=== PATIENT | male | born 1985 | race Two or more races ===

== ENCOUNTER 2025-10-14 19:23 | Emergency (ER) | payer MEDICAID, OTHER ==
[~2025-10-14] VITALS: Ht 188 cm; Wt 160.7 kg
--- NOTE | 2025-10-14 21:26 | ED.PDOC ---
History of Present Illness HPI Comments 39 y/o M, presents to the ED for CC of earache. Patient states, he has been experiencing right ear pain that has caused him to be disorientated and unsteady while ambulating. Patient denies headache, nausea, vomiting, or dizziness. No other symptoms or modifying factors are present at this time. Chief Complaint: Earache Time Seen by MD: 21:00 Reviewed Notes: Nurses Notes, Medications, Allergies Allergies: Coded Allergies: NO KNOWN ALLERGIES (Unverified , 10/14/25) Information Source: Patient Mode of Arrival: Ambulatory Severity: Moderate Timing: Days Duration: Since onset Prehospital treatment: None Past Medical History PAST MEDICAL HISTORY: Denies Surgical History: Denies all surgeries Family History Family History: Unknown Social History Smoker: Non-Smoker Alcohol: Denies ETOH Use Drugs: Denies Drug Use Lives In: Home Constitutional: denies: chills, diaphoresis, fatigue, fever, malaise, sweats, weakness, others EENTM: reports: ear pain; denies: blurred vision, double vision, ear bleeding, ear discharge, ear drainage, ear ringing, eye pain, eye redness, hearing loss, mouth pain, mouth swelling, nasal discharge, nose bleeding, nose congestion, nose pain, photophobia, tearing, throat pain, throat swelling, voice changes, others Respiratory: denies: cough, hemoptysis, orthopnea, SOB at rest, shortness of breath, SOB with excertion, stridor, wheezing, others Cardiovascular: denies: chest pain, dizzy spells, diaphoresis, Dyspnea on exertion, edema, irregular heart beat, left arm pain, lightheadedness, palpitations, PND, syncope, others Gastrointestinal: denies: abdomen distended, abdominal pain, blood streaked bowels, constipated, diarrhea, dysphagia, difficulty swallowing, hematemesis, melena, nausea, poor appetite, poor fluid intake, rectal bleeding, rectal pain, vomiting, others Genitourinary: denies: burning, dysuria, flank pain, frequency, hematuria, incontinence, penile discharge, penile sore, pain, testicle pain, testicle swelling, urgency, others Neurological: denies: dizziness, fainting, headache, left sided numbness, left sided weakness, numbness, paresthesia, pre-existing deficit, right sided numbness, right sided weakness, seizure, speech problems, tingling, tremors, weakness, others Musculoskeletal: denies: back pain, gout, joint pain, joint swelling, muscle pain, muscle stiffness, neck pain, others Integumetry: denies: bruises, change in color, change in hair/nails, dryness, laceration, lesions, lumps, rash, wounds, others Allergic/Immunocompromised: denies: Difficulty Healing, Frequent Infections, Hives, Itching, others Hematologic/Lymphatic: denies: anemia, blood clots, easy bleeding, easy bruising, swollen glands, others Endocrine: denies: excessive hunger, excessive sweating, excessive thirst, excessive urination, flushing, intolerance to cold, intolerance to heat, unexplained weight gain, unexplained weight loss, others Psychiatric: denies: anxiety, bipolar disorder, depression, hopeless, panic disorder, schizophrenia, sleepless, suicidal, others All Other Systems: Reviewed and Negative Physical Exam General Appearance: No Apparent Distress, Normal HEENT: Normal ENT Inspection, Pharynx Normal, TM Abnormal (L), TM Abnormal (R) (bilateral cerumen ) Neck: Full Range of Motion, Non-Tender, Normal, Normal Inspection Respiratory: Chest Non-Tender, Lungs Clear, No Accessory Muscle Use, No Respiratory Distress, Normal Breath Sounds Cardiovascular: No Edema, No Murmur, No Gallop, Normal Peripheral Pulses, Regular Rate/Rhythm Breast Exam: Deferred Gastrointestinal: No Organomegaly, Non Tender, No Pulsatile Mass, Normal Bowel Sounds, Soft Genitalia: Deferred Pelvic: Deferred Rectal: Deferred Extremities: No calf tenderness, Normal capillary refill, Normal inspection, Normal range of motion, Non-tender, No pedal edema Musculoskeletal : Apperance: Normal Neurologic: Alert, manager wound II-XII nml as Tested, No Motor Deficits, Normal Affect, Normal Mood, No Sensory Deficits Cerebellar Function: Normal Reflexes: Normal Skin: Dry, Normal Color, Warm Lymphatic: No Adenopathy Was a procedure done? Was a procedure done?: No Differential Dx Considerations may include: otitis media, tinnitus X-Ray, Labs, Meds, VS Vital Signs Date Time Temp Pulse Resp B/P (MAP) Pulse Ox O2 Delivery O2 Flow Rate FiO2 10/14/25 21:57 104 16 95 Room Air 10/14/25 21:57 98.0 104 16 134/101 (112) 95 98.0 10/14/25 19:30 98.5 104 18 165/109 93 98.5 X-Ray, Labs, Meds, VS Comment Copious muscles intermittent was removed from the right canal using a curette. Canal was cleared showing erythemic/bulging tympanic membrane Time of 1ST Reevaluation: 21:30 Reevaluation 1ST: Unchanged Patient Education/Counseling: Diagnosis, Treatment, Need For Follow Up (Follow up if he has been next available appointment. Return emergency room if symptoms worsen.) Family Education/Counseling: No Family Present SEPSIS Sepsis Screen Date sepsis recognized/suspect: Oct 14, 2025 Time Sepsis recognized/suspect: 1932 Recent Procedure: No On Antibiotic Therapy: No Respiratory Rate >20: No Heart Rate >90: Yes Temp<36 C (96.8 F) or >38.3 C: No SBP <90 or MAP <65 mmHG: No New Acute Mental Status Change: No Is the patient on CPAP, BIPAP,: No Vital Signs Date Time Temp Pulse Resp B/P (MAP) Pulse Ox O2 Delivery O2 Flow Rate FiO2 10/14/25 21:57 104 16 95 Room Air 10/14/25 21:57 98.0 104 16 134/101 (112) 95 98.0 10/14/25 19:30 98.5 104 18 165/109 93 98.5 Departure 1 Departure Time of Disposition: 23:17 Impression: Primary Impression: Cerumen impaction Qualified Codes: H61.21 - Impacted cerumen, right ear Additional Impression: Otitis media Qualified Codes: H66.001 - Acute suppurative otitis media without spontaneous rupture of ear drum, right ear Disposition: HOME / SELF CARE / HOMELESS Condition: Stable e-Prescriptions [id number] (Otic) (Cortisporin Otic Soln) [address] 3 DROP OT TID for 6 Days, #10 DROP Prov: TULIO RAMIREZ [employer] 10/14/25 Amoxicillin Trihydrate (Amoxicillin) 875 Mg Tab 1 TAB PO BID for 7 Days, #14 TAB Prov: TULIO RAMIREZP 10/14/25 Discharged With: Self Critical Care Note Critical Care Time?: No Stability Stability form required: No Heart Score Heart Score: Heart Score Response (Comments) Value History N/A 0 EKG N/A 0 Age N/A 0 Risk Factors N/A 0 Troponin N/A 0 Total 0 I personally scribed for TULIO RAMIREZ [employer] OPER[employer] ([facility]) on 10/14/25 at 21:26. Electronically submitted by Jo Ann Salvador ([email or web address]). I personally scribed for TULIO RAMIREZ [employer] OPERATOR ([facility]) on 10/14/25 at 21:30. Electronically submitted by Jo Ann Salvador ([email or web address]). TULIO RAMIREZ [employer] O[employer] Oct 14, 2025 21:26
[2025-10-14 21:57] VITALS: BP 134/101; PULSE 104; RESP 16; TEMP 98; O2SAT 95
[2025-10-14] MEDS ORDERED: COR10OTS OT (23:19)
[2025-10-14] MEDS ORDERED: AMOX875T3 PO (23:19)
== END 2025-10-14 23:25 | disposition home or self-care (01) ==
LOC: ER 19:23
DX: H61.21 Impacted cerumen, right ear (principal); H66.009 Acute suppurative otitis media without spontaneous rupture of ear drum, unspecified ear; Z79.899 Other long term (current) drug therapy
CPT/HCPCS: 69210